=== PATIENT | female | born 1985 | race Two or more races ===

== ENCOUNTER 2017-08-03 20:27 | Emergency (ER) | payer SELFPAY ==
[~2017-08-03] VITALS: Ht 154.9 cm; Wt 72.6 kg
[2017-08-03 21:21] LABS: BASO # 0.1 x10^3/uL (0.0-0.2); BASO % 1 % (0-3); EOS % 1 % (0-3); HEMATOCRIT 41.6 % (36.0-47.0); HEMOGLOBIN 13.7 g/dL (12.0-15.5); LYMPH # 2.5 x10^3/uL (1.0-4.8); LYMPH % 36 % (24-48); MEAN CORPUSCULAR HEMOGLOBIN 27 pg (25-35); MEAN CORPUSCULAR HGB CONC 33 g/dL (31-37); MEAN CORPUSCULAR VOLUME 81 fL (79-100); MONO % 7 % (0-9); NEUT % 55 % (31-73); PLATELET COUNT 247 x10^3/uL (140-400); RED BLOOD COUNT 5.13 x10^6/uL (3.50-5.40); RED CELL DISTRIBUTION WIDTH 13.3 % (11.5-14.5); WHITE BLOOD COUNT 7.1 x10^3/uL (4.0-11.0)
[2017-08-03 21:24] LABS: BILIRUBIN,URINE NEGATIVE (NEG); GLUCOSE,URINE NEGATIVE (NEG); NITRITE,URINE NEGATIVE (NEG); PROTEIN,URINE NEGATIVE (NEG-TRACE); UROBILINOGEN,URINE 0.2 mg/dL (0.2 mg/dL)
[2017-08-03 21:33] LABS: BACTERIA,URINE FEW /HPF (0-FEW); SQUAMOUS EPITHELIAL CELL,UR FEW /LPF; WBC,URINE OCC /HPF (0-4)
[2017-08-03 21:40] LABS: CALCIUM 9.7 mg/dL (8.5-10.1); CREATININE 0.7 mg/dL (0.6-1.0); POTASSIUM 3.8 mmol/L (3.5-5.1)
[2017-08-03] MEDS ORDERED: ONDANSETRON PF 4 MG/2 ML VIAL. IV ONE (21:45)
[2017-08-03] MEDS ORDERED: IV NORMAL SALINE 1000ML BAG 1,000 ML IV SCH (21:45)
[2017-08-03] MEDS ORDERED: fentaNYL PF VIAL 100 MCG/2 ML VIAL IV PRN (21:45)
[2017-08-03] MEDS ORDERED: KETOROLAC 30 MG/ML INJ. IV ONE (21:45)
[2017-08-03 21:46] LABS: ALBUMIN 4.3 g/dL (3.4-5.0); ALBUMIN/GLOBULIN RATIO 1.1 (1.0-1.7); TOTAL BILIRUBIN 0.2 mg/dL (0.2-1.0); TOTAL PROTEIN 8.2 g/dL (6.4-8.2)
[2017-08-03 21:55] LABS: NEG OBC SER NEG; POS OBC SER POS
--- NOTE | 2017-08-03 22:36 | RAD ---
ABDOMEN LTD dated 08/03/2017 9:58 PM. Comparison: None. Clinical Indication: RUQ PAIN , pain Findings: Liver is of diffuse increased echogenicity, compatible with fatty infiltration. No focal hepatic mass. Intrahepatic and extra hepatic biliary tree normal in caliber. Common bile duct measures 4 mm. The gallbladder is somewhat contracted without gallbladder wall thickening or pericholecystic fluid. No gallstones are seen. Right kidney measures 11.4 cm in length without hydronephrosis. Left kidney was not imaged. Limited visualized portions of the pancreas, aorta and IVC are unremarkable. No significant ascites. IMPRESSION: 1. No acute sonographic abnormality. 2. Mild hepatic steatosis. Electronically signed by: Ranjeet Browne MD (08/03/2017 10:33 PM) [facility]
[2017-08-03] MEDS ORDERED: LIDO:MAALOX:DONNATAL 1:1:1 15 ML SINGLE DOSE SWSW ONE (23:00)
[2017-08-04] MEDS ORDERED: FAMO40TA4 PO (00:09)
[2017-08-04 00:47] VITALS: BP 133/90
--- NOTE | 2017-08-04 00:53 | ED.ADGEN ---
Past Medical History Past Medical History: No Pertinent History Past Surgical History: No Surgical History Alcohol Use: None Drug Use: None Adult General Chief Complaint Chief Complaint: ABDOMINAL PAIN HPI HPI Patient is a 31 year old woman, with no significant past no history, who presents the emergency department with a complaint of intermittent right her chronic abdominal pain over the past several weeks. Patient states the pain is currently "a 3 out of 10", states it is occasionally sharp and stabbing, and will radiate to her back. She denies any inciting or relieving factors, any changes with eating or drinking, any fevers or chills, nausea vomiting, any diarrhea. Denies any urinary complaints. No injuries, no previous surgeries, is resting comfortably at this time states that she came to be evaluated because the pain was recurrent has not previously been evaluated by a physician. She has not taken any medication prior to coming to the ED for evaluation. Review of Systems Review of Systems Constitutional: Denies fever or chills. [] Eyes: Denies change in visual acuity. [] HENT: Denies nasal congestion or sore throat. [] Respiratory: Denies cough or shortness of breath. [] Cardiovascular: Denies chest pain or edema. [] GI: Complaining of right upper quadrant abdominal pain, denies nausea, vomiting , bloody stools or diarrhea. [] : Denies dysuria. [] Musculoskeletal: Denies back pain or joint pain. [] Integument: Denies rash. [] Neurologic: Denies headache, focal weakness or sensory changes. [] Endocrine: Denies polyuria or polydipsia. [] Lymphatic: Denies swollen glands. [] Psychiatric: Denies depression or anxiety. [] Current Medications Current Medications Current Medications Medications (Trade) Dose Ordered Sig/Justa Start Time Stop Time Status Last Admin Dose Admin Fentanyl Citrate (Fentanyl 2ml Vial) 25 mcg PRN Q15MIN PRN 08/03/17 21:45 08/04/17 00:53 DC Ketorolac Tromethamine (Toradol) 10 mg 1X ONCE 08/03/17 21:45 08/03/17 21:46 DC 08/03/17 22:36 10 MG Multi-Ingredient Mouthwash/Gargle (Gi Cocktail Single Dose) 15 ml 1X ONCE 08/03/17 23:00 08/03/17 23:01 DC 08/03/17 23:06 15 ML Ondansetron HCl (Zofran) 4 mg 1X ONCE 08/03/17 21:45 08/03/17 21:46 DC 08/03/17 22:35 4 MG Sodium Chloride 1,000 ml @ 1,000 mls/hr Q1H 08/03/17 21:45 08/03/17 22:44 DC 08/03/17 22:34 1,000 MLS/HR Allergies Allergies Allergies Coded Allergies Type Severity Reaction Last Updated Verified No Known Drug Allergies 05/09/15 No Physical Exam Physical Exam Constitutional: Well developed, well nourished, no acute distress, non-toxic appearance. [] HENT: Normocephalic, atraumatic, bilateral external ears normal, oropharynx moist, no oral exudates, nose normal. [] Eyes: PERRLA, EOMI, conjunctiva normal, no discharge. [] Neck: Normal range of motion, no tenderness, supple, no stridor. [] Cardiovascular:Heart rate regular rhythm, no murmur, S1, S2, rubs or gallops. [] Lungs & Thorax: Bilateral breath sounds clear to auscultation, no wheezing, rhonchi, rales. No chest wall crepitus or tenderness. [] Abdomen: Bowel sounds normal, soft, mild tenderness palpation in the right upper quadrant, and epigastric region, no rebound, rigidity, no guarding, no masses, no pulsatile masses. [] Skin: Warm, dry, no erythema, no rash. [] Back: No tenderness, no CVA tenderness. [] Extremities: No tenderness, no cyanosis, no clubbing, ROM intact, no edema. [] Neurologic: Alert and oriented X 3, normal motor function, normal sensory function, no focal deficits noted. [] Psychologic: Affect normal, judgement normal, mood normal. [] Current Patient Data Vital Signs Vital Signs Date Time Temp Pulse Resp B/P (MAP) Pulse Ox O2 Delivery O2 Flow Rate FiO2 08/04/17 00:47 59 20 133/90 (104) 98 Room Air 08/03/17 20:57 98.4 98.4 Lab Values Laboratory Tests Test 08/03/17 20:44 08/03/17 21:07 POC Urine HCG, Qualitative Hcg negative (Negative) White Blood Count 7.1 x10^3/uL (4.0-11.0) Red Blood Count 5.13 x10^6/uL (3.50-5.40) Hemoglobin 13.7 g/dL (12.0-15.5) Hematocrit 41.6 % (36.0-47.0) Mean Corpuscular Volume 81 fL (79-100) Mean Corpuscular Hemoglobin 27 pg (25-35) Mean Corpuscular Hemoglobin Concent 33 g/dL (31-37) Red Cell Distribution Width 13.3 % (11.5-14.5) Platelet Count 247 x10^3/uL (140-400) Neutrophils (%) (Auto) 55 % (31-73) Lymphocytes (%) (Auto) 36 % (24-48) Monocytes (%) (Auto) 7 % (0-9) Eosinophils (%) (Auto) 1 % (0-3) Basophils (%) (Auto) 1 % (0-3) Neutrophils # (Auto) 4.0 x10^3uL (1.8-7.7) Lymphocytes # (Auto) 2.5 x10^3/uL (1.0-4.8) Monocytes # (Auto) 0.5 x10^3/uL (0.0-1.1) Eosinophils # (Auto) 0.1 x10^3/uL (0.0-0.7) Basophils # (Auto) 0.1 x10^3/uL (0.0-0.2) Urine Collection Type Unknown Urine Color Yellow Urine Clarity Clear Urine pH 6.0 Urine Specific [place] 1.020 Urine Protein Negative mg/dL (NEG-TRACE) Urine Glucose (UA) Negative mg/dL (NEG) Urine Ketones (Stick) Negative mg/dL (NEG) Urine Blood Moderate (NEG) Urine Nitrite Negative (NEG) Urine Bilirubin Negative (NEG) Urine Urobilinogen Dipstick 0.2 mg/dL (0.2 mg/dL) Urine Leukocyte Esterase Negative (NEG) Urine RBC 6-10 /HPF (0-2) Urine WBC Occ /HPF (0-4) Urine Squamous Epithelial Cells Few /LPF Urine Bacteria Few /HPF (0-FEW) Urine Mucus Mod /LPF Sodium Level 141 mmol/L (136-145) Potassium Level 3.8 mmol/L (3.5-5.1) Chloride Level 103 mmol/L (98-107) Carbon Dioxide Level 30 mmol/L (21-32) Anion Gap 8 (6-14) Blood Urea Nitrogen 10 mg/dL (7-20) Creatinine 0.7 mg/dL (0.6-1.0) Estimated GFR (Cockcroft-Gault) 97.0 BUN/Creatinine Ratio 14 (6-20) Glucose Level 101 mg/dL (70-99) H Calcium Level 9.7 mg/dL (8.5-10.1) Total Bilirubin 0.2 mg/dL (0.2-1.0) Aspartate Amino Transferase (AST) 34 U/L (15-37) Alanine Aminotransferase (ALT) 54 U/L (14-59) Alkaline Phosphatase 86 U/L (46-116) Total Protein 8.2 g/dL (6.4-8.2) Albumin 4.3 g/dL (3.4-5.0) Albumin/Globulin Ratio 1.1 (1.0-1.7) Lipase 192 U/L (73-393) Serum Test, Qualitative Negative (NEG) Laboratory Tests 08/03/17 21:07 Laboratory Tests 08/03/17 21:07 EKG EKG Not indicated.[] Radiology/Procedures Radiology/Procedures [][facility] [address] [place], [place] [id number] IMAGING REPORT Signed PATIENT: AYLA FERREIRA ACCOUNT: [id number] : 1985 LOCATION: ER AGE: 31 SEX: F EXAM STATUS: REG ER ORD. PHYSICIAN: STEPHEN JAEGER DO REASON: RUQ pain PROCEDURE: ABDOMEN LTD ABDOMEN LTD dated 08/03/2017 9:58 PM. Comparison: None. Clinical Indication: RUQ PAIN , pain Findings: Liver is of diffuse increased echogenicity, compatible with fatty infiltration. No focal hepatic mass. Intrahepatic and extra hepatic biliary tree normal in caliber. Common bile duct measures 4 mm. The gallbladder is somewhat contracted without gallbladder wall thickening or pericholecystic fluid. No gallstones are seen. Right kidney measures 11.4 cm in length without hydronephrosis. Left kidney was not imaged. Limited visualized portions of the pancreas, aorta and IVC are unremarkable. No significant ascites. IMPRESSION: 1. No acute sonographic abnormality. 2. Mild hepatic steatosis. Electronically signed by: Ranjeet Browne MD (08/03/2017 10:33 PM) [facility] DICTATED and SIGNED BY: RANJEET BROWNE MD DATE: 08/03/172231 CC: STEPHEN JAEGER DO; NO PCP ~ Course & Med Decision Making Course & Med Decision Making Pertinent Labs and Imaging studies reviewed. (See chart for details) Patient well-appearing, with mild tenderness right upper quadrant, epigastric region. Patient is receiving laboratory studies and ultrasound of the right upper quadrant to further elucidate symptoms. Imaging obtained which not reveal any evidence of cholecystitis or other acute issues, noted to have some fatty liver. Laboratory studies also unremarkable. Patient received GI cocktail IV fluids and pain medication the ED. Patient states that she is feeling better after receiving these interventions, especially GI cocktail. I did discuss with patient that these could be consistent with GERD type symptoms, dietary recommendations made, along with prescription for famotidine, we did discuss concerning symptoms that prompt return to the emergency department, and importance of establishing a primary care provider for follow-up. Patient voiced understanding and agreement with instructions and precautions as stated, discharged home in stable condition with plan to follow-up, prescription for famotidine as stated, and to return for concerning symptoms as discussed. Rose Disclaimer Rose Disclaimer This electronic medical record was generated, in whole or in part, using a voice recognition dictation system. Departure Impression: Primary Impression: Abdominal pain Disposition: 01 HOME, SELF-CARE Condition: IMPROVED Scripts Famotidine (FAMOTIDINE) 40 Mg Tablet 40 MG PO HS for 15 Days, #15 TAB Prov: STEPHEN JAEGER DO 08/04/17 STEPHEN JAEGER DO Aug 04, 2017 00:53
== END 2017-08-04 00:48 | disposition home or self-care (01) ==
LOC: ER 20:27
DX: R10.11 Right upper quadrant pain (principal); R10.13 Epigastric pain; G89.29 Other chronic pain
CPT/HCPCS: 36415; 76705; 80053; 81001; 81025; 83690; 84703; 85025; 96361; 96374; 96375; 99285; J1885; J2405; J7030

== ENCOUNTER 2018-06-02 15:38 | Emergency (ER) | payer SELFPAY ==
[2018-06-02 16:02] LABS: URINE HCG POC HCG NEGATIVE (Negative)
[2018-06-02 16:07] LABS: BILIRUBIN,URINE SMALL (NEG); CLARITY,URINE CLEAR; COLOR,URINE AMBER; GLUCOSE,URINE NEGATIVE (NEG); NITRITE,URINE NEGATIVE (NEG); PH,URINE 5.5; PROTEIN,URINE 30 mg/dL (NEG-TRACE); UROBILINOGEN,URINE 0.2 mg/dL (0.2 mg/dL)
[2018-06-02 16:13] LABS: ADD MAN DIFF? NO
[2018-06-02] MEDS: IV NORMAL SALINE 1000ML BAG 1,000 ML IV (16:13)
[2018-06-02 16:16] LABS: BASO % 1 % (0-3); EOS # 0.1 x10^3/uL (0.0-0.7); EOS % 1 % (0-3); HEMOGLOBIN 13.7 g/dL (12.0-15.5); LYMPH # 2.3 x10^3/uL (1.0-4.8); LYMPH % 38 % (24-48); MEAN CORPUSCULAR HEMOGLOBIN 27 pg (25-35); MEAN CORPUSCULAR HGB CONC 33 g/dL (31-37); MEAN CORPUSCULAR VOLUME 80 fL (79-100); MONO # 0.4 x10^3/uL (0.0-1.1); MONO % 7 % (0-9); NEUT # 3.2 x10^3uL (1.8-7.7); NEUT % 54 % (31-73); PLATELET COUNT 224 x10^3/uL (140-400); RED BLOOD COUNT 5.11 x10^6/uL (3.50-5.40); RED CELL DISTRIBUTION WIDTH 13.4 % (11.5-14.5)
[2018-06-02 16:26] LABS: BACTERIA,URINE MOD /HPF (0-FEW); HYALINE CASTS, URINE MANY /HPF; SQUAMOUS EPITHELIAL CELL,UR MANY /LPF
[2018-06-02 16:37] LABS: ANION GAP 13 (6-14); BLOOD UREA NITROGEN 11 mg/dL (7-20); BUN/CREATININE RATIO 12 (6-20); CARBON DIOXIDE 25 mmol/L (21-32); CHLORIDE 101 mmol/L (98-107); CREATININE 0.9 mg/dL (0.6-1.0); GFR 72.1; GLUCOSE 87 mg/dL (70-99); POTASSIUM 3.7 mmol/L (3.5-5.1); SODIUM 139 mmol/L (136-145)
[2018-06-02 16:50] LABS: ALBUMIN 4.2 g/dL (3.4-5.0); ALK PHOS 77 U/L (46-116); ALT (SGPT) 23 U/L (14-59); AST (SGOT) 15 U/L (15-37); MAGNESIUM 1.8 mg/dL (1.8-2.4); TOTAL BILIRUBIN 0.6 mg/dL (0.2-1.0); TOTAL PROTEIN 8.6 g/dL (6.4-8.2)
== END 2018-06-02 18:47 | disposition home or self-care (01) ==
LOC: ER 15:38
DX: E86.0 Dehydration (principal); R19.7 Diarrhea, unspecified; R42 Dizziness and giddiness; F17.223 Nicotine dependence, chewing tobacco, with withdrawal
CPT/HCPCS: 36415; 80053; 81001; 81025; 83735; 85025; 96360; 99284-25; J7030

== ENCOUNTER 2019-03-23 19:29 | Emergency (ER) | payer SELFPAY ==
[~2019-03-23] VITALS: Ht 154.9 cm; Wt 72.6 kg
[~2019-03-23 19:29] MED LIST: FAMO40TA4 PO
[2019-03-23 20:36] VITALS: BP 125/92
--- NOTE | 2019-03-23 21:30 | PHYS DOC ---
Past Medical History Past Medical History: No Pertinent History (DEEPTHI CH APRN) Past Surgical History: No Surgical History (DEEPTHI CH APRN) Additional Information: non smoker Alcohol Use: None Drug Use: None (DEEPTHI CH APRN) Adult General Chief Complaint Chief Complaint: EYE PROBLEMS [facility] HPI Patient is a 33-year-old female who presents with right eye pain 3 days. She is a associated symptoms of runny nose and sneezing. Has also had congestion. Denies pain. Nothing has made it better or worse and has not tried any medicine at home. (DEEPTHI CH APRN) Review of Systems Review of Systems Constitutional: Denies fever or chills [] Eyes: Denies change in visual acuity. Reports redness. Denies eye pain [] HENT: Reports nasal congestion denies sore throat. [] Respiratory: Denies cough or shortness of breath [] Cardiovascular: No additional information not addressed in HPI [] GI: Denies abdominal pain, nausea, vomiting, bloody stools or diarrhea [] : Denies dysuria or hematuria [] Musculoskeletal: Denies back pain or joint pain [] Integument: Denies rash or skin lesions [] Neurologic: Denies headache, focal weakness or sensory changes [] Endocrine: Denies polyuria or polydipsia [] Complete systems were reviewed and found to be within normal limits, except as documented in this note. (DEEPTHI CH APRN) Allergies Allergies Allergies Coded Allergies Type Severity Reaction Last Updated Verified No Known Drug Allergies 05/09/15 No (GOLLAPALLI,JANENE E DO) Physical Exam Physical Exam Constitutional: Well developed, well nourished, no acute distress, non-toxic appearance. [] HENT: Normocephalic, atraumatic, bilateral external ears normal, oropharynx moist, no oral exudates, nose normal. [] Eyes: PERRLA, EOMI, conjunctiva red on the R eye, no discharge. [] Neck: Normal range of motion, no tenderness, supple, no stridor. [] Cardiovascular:Heart rate regular rhythm, no murmur [] Lungs & Thorax: Bilateral breath sounds clear to auscultation [] Abdomen: Bowel sounds normal, soft, no tenderness, no masses, no pulsatile masses. [] Skin: Warm, dry, no erythema, no rash. [] Back: No tenderness, no CVA tenderness. [] Extremities: No tenderness, no cyanosis, no clubbing, ROM intact, no edema. [] Neurologic: Alert and oriented X 3, normal motor function, normal sensory func tion, no focal deficits noted. [] Psychologic: Affect normal, judgement normal, mood normal. [] (DEEPTHI CH APRN) Current Patient Data Vital Signs Vital Signs Date Time Temp Pulse Resp B/P (MAP) Pulse Ox O2 Delivery O2 Flow Rate FiO2 03/23/19 20:36 97.9 81 20 125/92 (103) 96 Room Air 97.9 (JANENE BILLY DO) EKG EKG [] (DEEPTHI CH APRN) Radiology/Procedures Radiology/Procedures [] (DEEPTHI CH APRN) Course & Med Decision Making Course & Med Decision Making Pertinent Labs and Imaging studies reviewed. (See chart for details) Discussed with patient her symptoms. She likely has a viral conjunctivitis from allergies. Will come back if it does not improve to get antibiotics. Will d/c home. Patient is agreeable to plan of care. (DEEPTHI CH APRN) Dragon Disclaimer Dragon Disclaimer This electronic medical record was generated, in whole or in part, using a voice recognition dictation system. (DEEPTHI CH APRN) Dragon Disclaimer The mid-level provider has independently evaluated and treated this patient. I was available for consultation throughout the patient care by the mid-level provider. I agree with the care provided by the mid-level provider (JANENE BILLY DO) Departure Departure Impression: Primary Impression: Conjunctivitis Disposition: 01 HOME, SELF-CARE Condition: STABLE Referrals: NO PCP (PCP) Patient Instructions: Allergic Conjunctivitis, [id number] Additional Instructions: Please take OTC Zyrtec to help with allergies and come back if symptoms do not improve or follow up with PCP. Problem Qualifiers Primary Impression: Conjunctivitis Conjunctivitis type: acute Acute conjunctivitis type: viral Laterality: right Qualified Codes: B30.9 - Viral conjunctivitis, unspecified DEEPTHI CH APRN March 23, 2019 21:30 JANENE BILLY DO March 24, 2019 06:06
== END 2019-03-23 21:47 | disposition home or self-care (01) ==
LOC: ER 19:29
DX: B30.9 Viral conjunctivitis, unspecified (principal)
CPT/HCPCS: 99281